=== PATIENT | female | born 1995 | race African-American/Black ===

== ENCOUNTER 2021-03-12 14:19 | Emergency (ER) | payer OTHER ==
[~2021-03-12] VITALS: Ht 167.6 cm; Wt 128.2 kg
[2021-03-12 14:24] VITALS: BP 165/85
[2021-03-12] MEDS ORDERED: ORPHENADRINE CITRATE 60 MG/2 ML VIAL. IM ONE (15:15)
[2021-03-12] MEDS ORDERED: KETOROLAC TROMETHAMINE 10 MG TABLET PO PRN (15:15)
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
[2021-03-12] MEDS ORDERED: KETO10TA PO (15:53)
[2021-03-12] MEDS ORDERED: ORPH100T PO (15:53)
== END 2021-03-12 16:03 | disposition home or self-care (01) ==
LOC: ER 14:19
DX: M62.838 Other muscle spasm (principal); M43.6 Torticollis; R51.9 Headache, unspecified; M54.2 Cervicalgia
CPT/HCPCS: 96372; 99283; J2360